=== PATIENT | female | born 1930 | race Hispanic/Latino ===

== ENCOUNTER → 2018-12-16 | Outpatient (CLI) | payer MEDICARE ==
[~2018-12-16] MED LIST: AMIT50TA3 PO; ASPI-555 PO; BACL5TAB PO; CETI10TA86 PO; CITA10TA7 PO; CLOP75TA32 PO; ESTR-3 PO; FAMC500T18 PO; FURO20TA4 PO; ISOS30TA6 PO; LEVO50TA11 PO; LORA1TAB3 PO; MECL-129 PO; METO-391 PO; NITR0.4T SL; PANT40TA25 PO; POLY17PO29 PO; PRAV20TA4 PO; PROM5SYR PO; QUET25TA74 PO; TOBR5DRO7 OU; TRAM50TA4 PO; VALS40TA4 PO; VALS80TA2 PO
== END | disposition home or self-care (01) ==
LOC: SHCH 15:39
PROVIDERS: ATTEND Internal Medicine Cardiovascular Disease
DX: I08.1 Rheumatic disorders of both mitral and tricuspid valves (principal); I48.91 Unspecified atrial fibrillation; I42.0 Dilated cardiomyopathy
CPT/HCPCS: 93306